=== PATIENT | male | born 1970 | race Hispanic/Latino ===

== ENCOUNTER 2019-01-21 21:11 | Emergency (ER) | payer SELFPAY ==
[2019-01-21 22:06] LABS: Absolute Lymphocytes (CBC) 1.5 K/uL (0.7-4.9); Basophils % 1.3 % (0-1.3); Hematocrit 40.8 % (39.6-49.0); Lymphocytes % 17.4 % (15.3-44.8); MPV 6.6 fL (7.6-11.3); RBC Red Blood Cell Count 4.47 M/uL (4.33-5.43)
[2019-01-21 22:18] LABS: Protime INR 1.02
[2019-01-21] MEDS ORDERED: NA CHLORIDE 0.9% 1,000 ML ONE (22:18)
[2019-01-21 22:28] LABS: ALT/SGPT 54 U/L (12-78); AST/SGOT 24 U/L (15-37); Albumin 3.7 g/dL (3.4-5.0); Alkaline Phosphatase 68 U/L (45-117); BUN Blood Urea Nitrogen 15 mg/dL (7-18); Bicarbonate 28 mmol/L (21-32); Bilirubin Direct < 0.1 mg/dL (0-0.2); Bilirubin Total 0.3 mg/dL (0.2-1.0); Glucose Level 95 mg/dL (74-106); Magnesium 2.1 mg/dL (1.8-2.4); NT PRO-BNP 36 pg/mL (<125); Potassium 3.6 mmol/L (3.5-5.1); Protein, Total 6.5 g/dL (6.4-8.2); Sodium Level 146 mmol/L (136-145); Troponin (Emerg Dept Use Only) < 0.02 ng/mL (0.0-0.045)
--- NOTE | 2019-01-21 22:57 | RAD REPORT ---
EXAM DESCRIPTION: RAD - Chest Single View - 01/21/2019 10:49 pm CLINICAL HISTORY: near syncope Chest pain. COMPARISON: No comparisons FINDINGS: Portable technique limits examination quality. The lungs are grossly clear. The heart is normal in size. No displaced fractures. IMPRESSION: No acute intrathoracic process suspected.
--- NOTE | 2019-01-22 01:24 | ER ---
Nurse's Notes [facility] Name: Holden Diallo Age: 48 yrs Sex: Male : 1970 Arrival Date: 01/21/2019 Time: 21:13 Bed 5 Private MD: Diagnosis: Dehydration Presentation: 01/21 21:13 Presenting complaint: EMS states: Patient was working at [employer] when reported he ao almost passing out. Patient didn't pass out, but looked pale and sick. Patient report drinking alcohol the previous night. Transition of care: patient was not received from another setting of care. Onset of symptoms was January 21, 2019 at 20:00. Risk Assessment: Do you want to hurt yourself or someone else? Patient reports no desire to harm self or others. Initial Sepsis Screen: Does the patient meet any 2 criteria? No. Patient's initial sepsis screen is negative. Does the patient have a suspected source of infection? No. Patient's initial sepsis screen is negative. Care prior to arrival: IV on the left arm Medication(s) given: Normal saline infusion, 500 mL. 21:13 Method Of Arrival: EMS: [facility] ao 21:13 Acuity: SPENSER 3 ao Triage Assessment: 21:17 General: Appears in no apparent distress. uncomfortable, Behavior is calm, cooperative, cc3 appropriate for age. Pain: Denies pain. Historical: - Allergies: 21:16 No Known Allergies; ao - Home Meds: 21:16 None [Active]; ao - PMHx: 21:16 None; ao - PSHx: 21:16 None; ao - Immunization history:: Adult Immunizations up to date. - Social history:: Smoking status: Patient uses tobacco products, smokes one-half pack cigarettes per day, Patient uses alcohol, occasionally. Patient/guardian denies using street drugs, but used to use street drugs. - Ebola Screening: : Patient negative for fever greater than or equal to 101.5 degrees Fahrenheit, and additional compatible Ebola Virus Disease symptoms Patient denies exposure to infectious person Patient denies travel to an Ebola-affected area in the 21 days before illness onset. Screenin:14 Abuse screen: Denies threats or abuse. Denies injuries from another. Nutritional cc3 screening: No deficits noted. Tuberculosis screening: No symptoms or risk factors identified. Fall Risk Ambulatory Aid- None/Bed Rest/Nurse Assist (0 pts). Gait- Normal/Bed Rest/Wheelchair (0 pts) Mental Status- Oriented to own ability (0 pts). Assessment: 21:14 General: Appears in no apparent distress. uncomfortable, Behavior is calm, cooperative, cc3 appropriate for age. Pain: Denies pain. Neuro: Level of Consciousness is awake, alert, obeys commands, Oriented to person, place, time, situation, Appropriate for age. Cardiovascular: Heart tones S1 S2 present Capillary refill < 3 seconds in bilateral fingers Patient's skin is warm and dry. Rhythm is sinus rhythm. Respiratory: Airway is patent Respiratory effort is even, unlabored, Respiratory pattern is regular, symmetrical, Breath sounds are clear bilaterally. GI: Abdomen is round non-distended, Bowel sounds present X 4 quads. : No signs and/or symptoms were reported regarding the genitourinary system. EENT: No signs and/or symptoms were reported regarding the EENT system. Derm: Skin is intact, is healthy with good turgor, Skin is pale. Musculoskeletal: Circulation, motion, and sensation intact. Range of motion: intact in all extremities. 22:25 Reassessment: Patient appears in no apparent distress at this time. Patient and/or cc3 family updated on plan of care and expected duration. Pain level reassessed. Patient is alert, oriented x 3, equal unlabored respirations, skin warm/dry/pink. Patient denies pain at this time. Patient states feeling better. Patient states symptoms have improved. 23:09 Reassessment: Patient appears in no apparent distress at this time. Patient and/or cc3 family updated on plan of care and expected duration. Pain level reassessed. Patient is alert, oriented x 3, equal unlabored respirations, skin warm/dry/pink. Patient denies pain at this time. Patient states feeling better. Patient states symptoms have improved. 01/22 00:18 Reassessment: Patient appears in no apparent distress at this time. Patient and/or cc3 family updated on plan of care and expected duration. Pain level reassessed. Patient is alert, oriented x 3, equal unlabored respirations, skin warm/dry/pink. Patient denies pain at this time. Patient states feeling better. Patient states symptoms have improved. 01:30 Reassessment: Patient appears in no apparent distress at this time. Patient and/or cc3 family updated on plan of care and expected duration. Pain level reassessed. Patient is alert, oriented x 3, equal unlabored respirations, skin warm/dry/pink. FENG Lopez discharged the patient home with prescription given. IV cannula removed by PEG Cervantes and patient left ER vitally stable and ambulatory. No valuables left in the patient's room. Patient denies pain at this time. Patient states feeling better. Patient states symptoms have improved. Vital Signs: 01/21 21:17 BP 137 / 78; Pulse 73; Resp 16; Temp 98.9(O); Pulse Ox 96% on R/A; Weight 90.72 kg (R); ao Height 5 ft. 2 in. (157.48 cm) (R); Pain 0/10; 22:30 BP 129 / 80; Pulse 65; Resp 18 S; Pulse Ox 98% on R/A; cc3 23:10 BP 122 / 87; Pulse 65; Resp 20 S; Pulse Ox 97% on R/A; Pain 0/10; cc3 01/22 01:00 BP 128 / 84 Supine; Pulse 67; Resp 20; Pulse Ox 98% ; rr5 01:01 BP 131 / 83 Sitting; Pulse 71; Resp 19; Pulse Ox 99% ; rr5 01:02 BP 137 / 88 Standing; Pulse 68; Resp 21; Pulse Ox 99% ; rr5 01:33 BP 131 / 77; Pulse 69; Resp 19; Temp 98.7; Pulse Ox 98% ; rr5 01/21 21:17 Body Mass Index 36.58 (90.72 kg, 157.48 cm) ao ED Course: 01/21 21:13 Patient arrived in ED. ao 21:14 Eleonora Rodas is Primary Nurse. cc3 21:14 Patient has correct armband on for positive identification. Placed in gown. Bed in low cc3 position. Call light in reach. Side rails up X2. transportation museum helper on. Pulse ox on. NIBP on. 21:14 Maintain EMS IV. Dressing intact. Good blood return noted. Site clean \T\ dry. Gauge \T\ cc 3 site: gauge 20 left ACV. 21:16 Triage completed. ao 21:18 Arm band placed on right wrist. Patient placed on a stretcher, on pulse oximetry, ao Patient notified of wait time. 21:38 Adrian, Jessica, CUP SETTER LOCKSTITCH-C [facility]. snw 21:38 Caleb Freeman MD is Attending Physician. snw 22:50 XRAY Chest (1 view) In Process Unspecified. EDMS 01/22 01:33 No provider procedures requiring assistance completed. IV discontinued, intact, rr5 bleeding controlled, No redness/swelling at site. Pressure dressing applied. Administered Medications: 01/21 22:15 Drug: NS 0.9% 1000 ml Route: IV; Rate: 1000 ml; Site: left forearm; cc3 23:20 Follow up: Response: No adverse reaction; IV Status: Completed infusion; IV Intake: cc3 1000ml Intake: 23:20 IV: 1000ml; Total: 1000ml. cc3 Outcome: 01/22 01:24 Discharge ordered by . snw 01:33 Discharged to home ambulatory, with friend. rr5 01:33 Condition: stable 01:33 Discharge instructions given to patient, Instructed on discharge instructions, follow up and referral plans. medication usage, Demonstrated understanding of instructions, follow-up care, medications, Prescriptions given X 1. 01:34 Patient left the ED. cc3 Signatures: Dispatcher [employer] EDMS Jessica Campbell FNP-C CUP SETTER LOCKSTITCH-Csnw Emerson Sin, RN RN Eleonora Camejo cc3 Billy Jurado, RN RN rr5 Corrections: (The following items were deleted from the chart) 01/21 21:17 21:13 Presenting complaint: EMS states: Patient was working at [employer] when reported ao he almost passing out. Patient didn't pass out, but looked pale and sick ao 01/22 01:37 01:30 Reassessment: Patient appears in no apparent distress at this time. Patient cc3 and/or family updated on plan of care and expected duration. Pain level reassessed. Patient is alert, oriented x 3, equal unlabored respirations, skin warm/dry/pink. Patient denies pain at this time. Patient states feeling better. Patient states symptoms have improved. cc3
--- NOTE | 2019-01-22 01:25 | EDPHYS ---
Physician Documentation [facility] Name: Holden Diallo Age: 48 yrs Sex: Male : 1970 Arrival Date: 01/21/2019 Time: 21:13 Bed 5 Private MD: ED Physician Caleb Freeman HPI: 01/21 22:06 This 48 yrs old Male presents to ER via EMS with complaints of Near Syncope. snw 22:06 The patient has experienced near-syncope, pt states only that he needed some air and snw got sweaty. 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 Onset: The symptoms/episode began/occurred suddenly, just prior to arrival. Duration: This was a single episode, that lasted an unknown period of time. Context: the episode(s) was witnessed, by co-worker(s), occurred at work, occurred while the patient was on scaffold. Associated injury: The patient did not suffer any apparent associated injury. Associated signs and symptoms: The patient has no apparent associated signs or symptoms. Current symptoms: Currently, the patient is not experiencing any symptoms. The patient has not experienced similar symptoms in the past. It is unknown whether or not the patient has recently seen a physician. denies PMH, medications, allergies. Historical: - Allergies: 21:16 No Known Allergies; ao - Home Meds: 21:16 None [Active]; ao - PMHx: 21:16 None; ao - PSHx: 21:16 None; ao - Immunization history:: Adult Immunizations up to date. - Social history:: Smoking status: Patient uses tobacco products, smokes one-half pack cigarettes per day, Patient uses alcohol, occasionally. Patient/guardian denies using street drugs, but used to use street drugs. - Ebola Screening: : Patient negative for fever greater than or equal to 101.5 degrees Fahrenheit, and additional compatible Ebola Virus Disease symptoms Patient denies exposure to infectious person Patient denies travel to an Ebola-affected area in the 21 days before illness onset. ROS: 22:05 Eyes: Negative for injury, pain, redness, and discharge, ENT: Negative for injury, snw pain, and discharge, Neck: Negative for injury, pain, and swelling, Cardiovascular: Negative for chest pain, palpitations, and edema, Respiratory: Negative for shortness of breath, cough, wheezing, and pleuritic chest pain, Abdomen/GI: Negative for abdominal pain, nausea, vomiting, diarrhea, and constipation, Back: Negative for injury and pain, : Negative for injury, bleeding, discharge, and swelling, MS/Extremity: Negative for injury and deformity, Neuro: Negative for headache, weakness, numbness, tingling, and seizure, Psych: Negative for depression, anxiety, suicide ideation, homicidal ideation, and hallucinations. 22:05 Constitutional: Positive for "I need some air". 22:05 Skin: Positive for diaphoresis. Exam: 22:03 Constitutional: This is a well developed, well nourished patient who is awake, alert, snw and in no acute distress. Head/Face: Normocephalic, atraumatic. Eyes: Pupils equal round and reactive to light, extra-ocular motions intact. Lids and lashes normal. Conjunctiva and sclera are non-icteric and not injected. Cornea within normal limits. Periorbital areas with no swelling, redness, or edema. ENT: Nares patent. No nasal discharge, no septal abnormalities noted. Tympanic membranes are normal and external auditory canals are clear. Oropharynx with no redness, swelling, or masses, exudates, or evidence of obstruction, uvula midline. Mucous membranes moist. Neck: Trachea midline, no thyromegaly or masses palpated, and no cervical lymphadenopathy. Supple, full range of motion without nuchal rigidity, or vertebral point tenderness. No Meningismus. Chest/axilla: Normal chest wall appearance and motion. Nontender with no deformity. No lesions are appreciated. Cardiovascular: Regular rate and rhythm with a normal S1 and S2. No gallops, murmurs, or rubs. Normal PMI, no JVD. No pulse deficits. Respiratory: Lungs have equal breath sounds bilaterally, clear to auscultation and percussion. No rales, rhonchi or wheezes noted. No increased work of breathing, no retractions or nasal flaring. Abdomen/GI: Soft, non-tender, with normal bowel sounds. No distension or tympany. No guarding or rebound. No evidence of tenderness throughout. Back: No spinal tenderness. No costovertebral tenderness. Full range of motion. MS/ Extremity: Pulses equal, no cyanosis. Neurovascular intact. Full, normal range of motion. Neuro: Awake and alert, GCS 15, oriented to person, place, time, and situation. Cranial nerves II-XII grossly intact. Motor strength 5/5 in all extremities. Sensory grossly intact. Cerebellar exam normal. Normal gait. Psych: Awake, alert, with orientation to person, place and time. Behavior, mood, and affect are within normal limits. 22:03 Skin: Appearance: Color: pale. Vital Signs: 21:17 BP 137 / 78; Pulse 73; Resp 16; Temp 98.9(O); Pulse Ox 96% on R/A; Weight 90.72 kg (R); ao Height 5 ft. 2 in. (157.48 cm) (R); Pain 0/10; 22:30 BP 129 / 80; Pulse 65; Resp 18 S; Pulse Ox 98% on R/A; cc3 23:10 BP 122 / 87; Pulse 65; Resp 20 S; Pulse Ox 97% on R/A; Pain 0/10; cc3 01/22 01:00 BP 128 / 84 Supine; Pulse 67; Resp 20; Pulse Ox 98% ; rr5 01:01 BP 131 / 83 Sitting; Pulse 71; Resp 19; Pulse Ox 99% ; rr5 01:02 BP 137 / 88 Standing; Pulse 68; Resp 21; Pulse Ox 99% ; rr5 01:33 BP 131 / 77; Pulse 69; Resp 19; Temp 98.7; Pulse Ox 98% ; rr5 01/21 21:17 Body Mass Index 36.58 (90.72 kg, 157.48 cm) ao MDM: 01/21 21:40 Patient medically screened. snw 01/22 01:26 ECG was reviewed by the Attending Physician. Data reviewed: vital signs, nurses notes. snw Data interpreted: Pulse oximetry: on room air is 99 %. Interpretation: normal. Counseling: I had a detailed discussion with the patient and/or guardian regarding: the historical points, exam findings, and any diagnostic results supporting the discharge/admit diagnosis, lab results, radiology results, the need for outpatient follow up, for definitive care, to return to the emergency department if symptoms worsen or persist or if there are any questions or concerns that arise at home. Special discussion: Based on the history and exam findings, there is no indication for further emergent testing or inpatient evaluation. I discussed with the patient/guardian the need to see the track layer head for further evaluation of the symptoms. I discussed with the patient/guardian the need to see the primary care provider for further evaluation of the symptoms. 01/21 21:39 Order name: Basic Metabolic Panel; Complete Time: 22:30 snw 01/21 21:39 Order name: CBC with Diff; Complete Time: 22:09 snw 01/21 21:39 Order name: LFT's; Complete Time: 22:30 snw 01/21 21:39 Order name: Magnesium; Complete Time: 22:30 snw 01/21 21:39 Order name: NT PRO-BNP; Complete Time: 22:30 snw 01/21 21:39 Order name: PT-INR; Complete Time: 22:28 snw 01/21 21:39 Order name: Troponin (emerg Dept Use Only); Complete Time: 22:30 snw 01/21 21:39 Order name: XRAY Chest (1 view); Complete Time: 23:23 snw 01/21 21:39 Order name: EKG; Complete Time: 21:55 snw 01/21 21:39 Order name: Cardiac monitoring; Complete Time: 21:47 snw 01/21 21:39 Order name: EKG - Nurse/Tech; Complete Time: 21:47 snw 01/21 21:39 Order name: IV Saline Lock; Complete Time: 22:01 snw 01/21 21:39 Order name: Labs collected and sent; Complete Time: 22:02 snw 01/21 21:39 Order name: O2 Per Protocol; Complete Time: 21:47 snw 01/21 21:39 Order name: O2 Sat Monitoring; Complete Time: 21:47 snw 01/22 00:30 Order name: Orthostatics; Complete Time: 01:01 snw Administered Medications: 01/21 22:15 Drug: NS 0.9% 1000 ml Route: IV; Rate: 1000 ml; Site: left forearm; cc3 23:20 Follow up: Response: No adverse reaction; IV Status: Completed infusion; IV Intake: cc3 1000ml Disposition: 01/22 05:13 Co-signature as Attending Physician, Caleb Freeman MD Available for consultation at ps1 all times . Disposition: 01/22/19 01:24 Discharged to Home. Impression: Dehydration. - Condition is Stable. - Discharge Instructions: Dehydration, Adult, Near-Syncope, Rehydration, Adult. - Prescriptions for promethazine 25 mg Oral Tablet - take 1 tablet by ORAL route every 6 hours As needed; 20 tablet. - Work release form, Medication Reconciliation Form, Thank You Letter, Antibiotic Education, Prescription Opioid Use form. - Follow up: Emergency Department; When: As needed; Reason: Worsening of condition. Follow up: Private Physician; When: 1 - 2 days; Reason: Recheck today's complaints, Continuance of care, Re-evaluation by your physician. Signatures: Dispatcher [employer] EDNM Jessica Campbell, COLIN-C NUCLEAR RADIOLOGIST-Csnw Emerson Sin RN RN Caleb Cristobal MD MD ps1 Cordel, Charlene cc3 Corrections: (The following items were deleted from the chart) 01:34 01:24 01/22/2019 01:24 Discharged to Home. Impression: Dehydration. Condition is cc3 Stable. Forms are Medication Reconciliation Form, Thank You Letter, Antibiotic Education, Prescription Opioid Use. Follow up: Emergency Department; When: As needed; Reason: Worsening of condition. Follow up: Private Physician; When: 1 - 2 days; Reason: Recheck today's complaints, Continuance of care, Re-evaluation by your physician. snw
[2019-01-22 01:46] VITALS: BP 131/77; TEMP 98.7; O2SAT 98
--- NOTE | 2019-01-22 06:33 | EKG ---
Test Date: 2019-01-21 Test Time: 21:20:59 Hammerer: JELANI MEASUREMENT RESULTS: Intervals: Rate: 74 WV: 148 QRSD: 86 QT: 392 QTc: 435 [place]: P: 61 WV: 148 QRS: 31 T: 3 INTERPRETIVE STATEMENTS: Normal sinus rhythm Normal ECG No previous ECG available for comparison Electronically Signed On 01-22-19 06:32:21 CDT by Julio Gonzalez
== END 2019-01-22 01:34 | disposition home or self-care (01) ==
LOC: ER 21:11
DX: E86.0 Dehydration (principal); F17.210 Nicotine dependence, cigarettes, uncomplicated
CPT/HCPCS: 36415; 71045; 80048; 80076; 83735; 83880; 84484; 85025; 85610; 93005; 96360; 99284; J7030